=== PATIENT | female | born 1965 | race Caucasian/White ===

== ENCOUNTER 2017-08-19 15:53 | Emergency (ER) | payer MEDICAID ==
[~2017-08-19 15:53] MED LIST: CEPH500 PO; DICL75 PO; LEVA750T PO; [UNRECOGNIZED DRUG - CODE] TOPICAL
[2017-08-19 16:00] VITALS: BP 120/72; PULSE 96; RESP 12; TEMP 98.6; O2SAT 96
--- NOTE | 2017-08-19 16:48 | PD ---
HPI Chief Complaint: Skin Problem Time Seen by Provider: 16:42 Travel History International Travel<30 days: No Contact w/Intl Traveler<30days: No Traveled to known affect area: No History of Present Illness HPI 52-year-old female presents to the emergency department complaining of a rash for 3 days on her left mid thoracic area. Her pain is 2 out of 10. She is here today because it has not decreased in size and she knows she needs some sort of treatment at this point. States she had shingles approximately 1-2 years ago and believes this is the problem today. She has had no sequela as a result of the shingles. Patient denies fever, chills, chest pain, shortness of breath. Patient is a smoker PFSH Past Medical History Arthritis: No Asthma: No Autoimmune Disease: No Blood Disorders: No Anxiety: No Depression: No Heart Rhythm Problems: No Cardiovascular Problems: No High Cholesterol: No Chemotherapy: No Congestive Heart Failure: No COPD: No Cerebrovascular Accident: No Diabetes: No Diminished Hearing: No Endocrine: No Gastrointestinal Disorders: No GERD: No Genitourinary: No Hiatal Hernia: No Immune Disorder: No Kidney Stones: No Musculoskeletal: No Neurologic: No Psychiatric: No Reproductive: No Respiratory: No Immunizations Current: Yes Migraines: No Radiation Therapy: No Renal Failure: No Seizures: No Sickle Cell Disease: No Sleep Apnea: No Thyroid Disease: No Ulcer: No PNEUMOCCOCAL Vaccine (Year): 2 Menopausal: Yes : 2 Para: 1 Miscarriage: 1 Past Surgical History Abdominal Surgery: No AICD: No Arteriovenous Shunt: No Cardiac Surgery: No Ear Surgery: No Endocrine Surgery: No Eye Surgery: No Genitourinary Surgery: No Gynecologic Surgery: No Insulin Pump: No Joint Replacement: No Oral Surgery: No Pacemaker: No Thoracic Surgery: No Tonsillectomy: Yes Other Surgery: Yes Social History Alcohol Use: Yes (1X MONTH:TONITE 1.5 24OZ BEERS) Tobacco Use: Yes (1 PPD) Substance Use: No Allergies-Medications (Allergen,Severity, Reaction): Coded Allergies: Sulfa (Sulfonamide Antibiotics) (Unverified Allergy, Severe, SWELLING, ) penicillin G (Unverified Allergy, Severe, SWELLING, 05/21/17) Reported Meds & Prescriptions Reported Meds & Active Scripts Active Acyclovir 800 Mg Tab 800 Mg PO 5 TIMES A DAY 7 Days Keflex 500 mg Cap (Cephalexin Monohydrate) 500 Mg Cap 500 Mg PO Q6HR Diclofenac Sodium Dr (Diclofenac Sod) 75 Mg Tab 75 Mg PO BID 20 Days Betadine (Povidone Iodine) 30 Gm Oint 1 Applic TOPICAL BID 14 Days Levaquin 750 Mg Tab (Levofloxacin) 750 Mg Tab 750 Mg PO DAILY 7 Days Review of Systems Except as stated in HPI: all other systems reviewed are Neg Physical Exam Narrative GENERAL: Well-nourished, well-developed patient. SKIN: Focused skin assessment warm/dry. Left chest/thorax- left T5-T6 distribution. Multiple sizes of papules, multiple stages of healing, erythematous base, no evidence of lymphangitic Spread, no exudate. Nonindurated, nonfluctuant. Rash does not cross the midline either anterior or posterior HEAD: Normocephalic. EYES: No scleral icterus. No injection or drainage. NECK: Supple, trachea midline. No JVD or lymphadenopathy. GASTROINTESTINAL: Abdomen soft, non-tender, nondistended. MUSCULOSKELETAL: No cyanosis, or edema. BACK: Nontender without obvious deformity. No CVA tenderness. Data Data Last Documented VS Vital Signs Date Time Temp Pulse Resp B/P (MAP) Pulse Ox O2 Delivery O2 Flow Rate FiO2 08/19/17 17:35 08/19/17 16:00 98.6 96 12 96 Orders Orders Ed Discharge Order (08/19/17 16:55) MDM Medical Decision Making Medical Screen Exam Complete: Yes Emergency Medical Condition: Yes Differential Diagnosis Shingles versus erysipelas versus cellulitis Narrative Course 52-year-old female presents to the emergency department complaining of a rash for 3 days on her left mid thoracic area. Her pain is 2 out of 10. She is here today because it has not decreased in size and she knows she needs some sort of treatment at this point. States she had shingles approximately 1-2 years ago and believes this is the problem today. She has had no sequela as a result of the shingles previously. Patient denies fever, chills, chest pain, shortness of breath. Patient is a smoker. She lives with 3-4 others in the household. Vital signs stable Physical exam consistent with shingles Advised the importance this of keeping the area clean and dry. Advised to avoid direct contact with other people until all of the lesions have scabbed over. Acyclovir for shingles. Advised patient to be alert for a bacterial infection secondary to her shingles infection. She understood and will comply to seek medical care if the rash worsens. Diagnosis Primary Impression: Shingles Qualified Codes: B02.9 - Zoster without complications Referrals: [facility] Additional Instructions: Follow up with [facility] within a couple of days. Keep area clean and dry to prevent a secondary bacterial infection. Avoid direct contact with other people until all the lesions have scabbed over. If your symptoms persist or worsen return to the emergency department. Scripts Acyclovir (Acyclovir) 800 Mg Tab 800 MG PO 5 TIMES A DAY for Mgmt Viral Infection for 7 Days, TAB 0 Refills Prov: Cleveland Huntley MD 08/19/17 Disposition: 01 DISCHARGE HOME Condition: Stable Libia Coppola Aug 19, 2017 16:47
[2017-08-19] MEDS ORDERED: ACYC800T PO (16:49)
== END 2017-08-19 17:39 | disposition home or self-care (01) ==
LOC: NEPK 15:53
DX: B02.9 Zoster without complications (principal); F17.210 Nicotine dependence, cigarettes, uncomplicated
CPT/HCPCS: 99283